=== PATIENT | female | born 1995 | race Two or more races ===

== ENCOUNTER 2019-05-14 21:37 | Emergency (ER) | payer SELFPAY ==
[~2019-05-14] VITALS: Ht 157.5 cm; Wt 81.8 kg
[~2019-05-14 21:37] MED LIST: AMOX1TAB61 PO; FLUT9.9S NS; PRED50TA PO
[2019-05-14 21:45] VITALS: BP 132/78
[2019-05-14] MEDS ORDERED: traMADol 50 MG TABLET PO ONE (22:15)
[2019-05-14] MEDS ORDERED: NEO/5DRO5 AU (22:45)
--- NOTE | 2019-05-14 22:46 | PHYS DOC ---
Past Medical History Past Medical History: Seizure (EFREM BENZ APRN) Past Surgical History: No Surgical History (EFREM BENZ APRN) Smoking Status: Never Smoker Alcohol Use: None Drug Use: None (EFREM BENZ APRN) Attending Signature I have participated in the care of this patient and I have reviewed and agree with all pertinent clinical information above including history, exam, and recommendations. (CARIN BURROWS MD) Adult General Chief Complaint Chief Complaint: EARACHE/EAR PAIN HPI HPI Patient is a 23 year old Female presented to the ED today complaining of mild intermittent bilateral ear pain that began 4 days ago. Patient denies any exacerbating or relieving factors. Denies any coughing or congestion. (EFREM BENZ APRN) Review of Systems Review of Systems Constitutional: Denies fever or chills [] Eyes: Denies change in visual acuity, redness, or eye pain [] HENT: reports bilateral ear pain.Denies nasal congestion or sore throat [] Respiratory: Denies cough or shortness of breath [] Cardiovascular: No additional information not addressed in HPI [] GI: Denies abdominal pain, nausea, vomiting, bloody stools or diarrhea [] : Denies dysuria or hematuria [] Musculoskeletal: Denies back pain or joint pain [] Integument: Denies rash or skin lesions [] Neurologic: Denies headache, focal weakness or sensory changes [] All other systems were reviewed and found to be within normal limits, except as documented in this note. (EFREM BENZ APRN) Current Medications Current Medications Current Medications Medications (Trade) Dose Ordered Sig/[facility] Start Time Stop Time Status Last Admin Dose Admin Tramadol HCl (Ultram) 50 mg 1X ONCE 05/14/19 22:15 05/14/19 22:16 DC 05/14/19 22:13 50 MG (CARIN BURROWS MD) Allergies Allergies Allergies Coded Allergies Type Severity Reaction Last Updated Verified No Known Drug Allergies 05/01/13 No (CARIN BURROWS MD) Physical Exam Physical Exam Constitutional: Well developed, well nourished, no acute distress, non-toxic appearance. [] HENT: Normocephalic, atraumatic, bilateral external ears normal, oropharynx moist, no oral exudates, nose normal. [] Bilateral ear canals are narrowed and erythematous left worse than right with small amount of yellow exudate in the left ear canal. TM appears normal. Eyes: PERRLA, EOMI, conjunctiva normal, no discharge. [] Neck: Normal range of motion, no tenderness, supple, no stridor. [] Cardiovascular:Heart rate regular rhythm, no murmur [] Lungs & Thorax: Bilateral breath sounds clear to auscultation [] Abdomen: Bowel sounds normal, soft, no tenderness, no masses, no pulsatile masses. [] Skin: Warm, dry, no erythema, no rash. [] Back: No tenderness, no CVA tenderness. [] Extremities: No tenderness, no cyanosis, no clubbing, ROM intact, no edema. [] Neurologic: Alert and oriented X 3, normal motor function, normal sensory function, no focal deficits noted. [] Psychologic: Affect normal, judgement normal, mood normal. [] (EFREM BENZ APRN) Current Patient Data Vital Signs Vital Signs Date Time Temp Pulse Resp B/P (MAP) Pulse Ox O2 Delivery O2 Flow Rate FiO2 05/14/19 22:13 18 99 Room Air 05/14/19 21:45 98.6 71 132/78 (96) 98.6 (CARIN BURROWS MD) EKG EKG [] (EFREM BENZ APRN) Radiology/Procedures Radiology/Procedures [] (EFREM BENZ APRN) Course & Med Decision Making Course & Med Decision Making Pertinent Labs and Imaging studies reviewed. (See chart for details) Patient has otitis externa, discharged with Cortisporin. Follow-up with ENT in 1-2 weeks. (EFREM BENZ APRN) Dragon Disclaimer Dragon Disclaimer This electronic medical record was generated, in whole or in part, using a voice recognition dictation system. (EFREM BENZ APRN) Departure Departure Impression: Primary Impression: Otitis externa Disposition: 01 HOME, SELF-CARE Condition: STABLE Referrals: NO PCP (PCP) KARO CAVAZOS MD follow up in 1-2 weeks Patient Instructions: Otitis Externa, [id number] Additional Instructions: You were seen for ear canal infection. Please use the prescribed antibiotics as ordered. Take Tylenol/Motrin for pain or fever. Follow-up with the provided ENT in 1 to 2 weeks Scripts Roldan/Polymyx B Sulf/Dexameth ([id number] EYE DROP) 5 Ml Drops.susp 1 DROP AU QID, #5 ML 0 Refills use for 7 days Prov: EFREM BENZ APRN 05/14/19 Problem Qualifiers Primary Impression: Otitis externa Otitis externa type: unspecified type Chronicity: acute Laterality: bilateral Qualified Codes: H60.503 - Unspecified acute noninfective otitis externa, bilateral EFREM BENZ APRN May 14, 2019 22:46 CARIN BURROWS MD May 15, 2019 02:52
== END 2019-05-14 22:56 | disposition home or self-care (01) ==
LOC: ER 21:37
DX: H60.503 Unspecified acute noninfective otitis externa, bilateral (principal); H92.03 Otalgia, bilateral
CPT/HCPCS: 99283

== ENCOUNTER 2019-10-19 15:39 | Emergency (ER) | payer SELFPAY ==
[~2019-10-19] VITALS: Ht 157.5 cm; Wt 63.0 kg
[~2019-10-19 15:39] MED LIST changes: +NEO/5DRO5 AU
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
[2019-10-19 16:15] LABS: BILIRUBIN,URINE SMALL (NEG); CLARITY,URINE CLOUDY; COLOR,URINE AMBER; NITRITE,URINE NEGATIVE (NEG); PROTEIN,URINE NEGATIVE (NEG-TRACE); UROBILINOGEN,URINE >=8.0 mg/dL (0.2 mg/dL)
[2019-10-19] MEDS ORDERED: HYDROcodone/APAP 5/325MG 1 TAB TABLET PO ONE (16:15)
[2019-10-19 16:26] LABS: RBC,URINE 0 /HPF (0-2)
[2019-10-19 16:47] LABS: BACTERIA,URINE MANY /HPF (0-FEW)
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
[2019-10-19] MEDS ORDERED: CEPH-264 PO (17:56)
[2019-10-19] MEDS ORDERED: IBUP-1007 PO (17:56)
[2019-10-19] MEDS ORDERED: ACET-704 PO (17:58)
[2019-10-19 18:00] VITALS: BP 119/67
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
== END 2019-10-19 18:28 | disposition home or self-care (01) ==
LOC: EEVIPCON 15:39 → ER 15:39
DX: S22.32XA Fracture of one rib, left side, initial encounter for closed fracture (principal); S50.12XA Contusion of left forearm, initial encounter; S00.83XA Contusion of other part of head, initial encounter; S40.022A Contusion of left upper arm, initial encounter; S40.021A Contusion of right upper arm, initial encounter; S80.12XA Contusion of left lower leg, initial encounter; S80.11XA Contusion of right lower leg, initial encounter; S70.02XA Contusion of left hip, initial encounter; S30.1XXA Contusion of abdominal wall, initial encounter; S09.90XA Unspecified injury of head, initial encounter; M54.5 Low back pain; M54.6 Pain in thoracic spine; M54.2 Cervicalgia; R42 Dizziness and giddiness; Y04.0XXA Assault by unarmed brawl or fight, initial encounter; Y93.89 Activity, other specified; Y92.89 Other specified places as the place of occurrence of the external cause; Y99.8 Other external cause status
CPT/HCPCS: 70450; 70486; 71111; 72072; 72100; 72125; 72170; 81001; 81025; 87086; 73552-50; 99285-25